=== PATIENT | male | born 2000 | race Caucasian/White ===

== ENCOUNTER 2018-05-30 11:13 | Outpatient (CLI) | payer OTHER | END 2018-05-30 11:14 | disposition home or self-care (01) | LOC: LAB.F 11:13 | PROVIDERS: ATTEND Internal Medicine | DX: Z02.9 Encounter for administrative examinations, unspecified (principal) | CPT/HCPCS: 36415; 81599; 86317; 86735; 86762; 86765; 86774; 86787; 87801 ==

== ENCOUNTER 2019-05-01 13:56 | Outpatient (CLI) | payer BC | END 2019-05-01 13:57 | disposition home or self-care (01) | LOC: LAB.S 13:56 | PROVIDERS: ATTEND Internal Medicine | DX: Z02.9 Encounter for administrative examinations, unspecified (principal) | CPT/HCPCS: 36415; 81599; 86480 ==

== ENCOUNTER 2019-12-11 08:00 | Outpatient (CLI) | payer BC | END 2019-12-11 23:59 | disposition home or self-care (01) | LOC: LAB.R 08:00 | PROVIDERS: ATTEND Physician Assistant Medical | DX: R05 Cough (principal); B97.89 Other viral agents as the cause of diseases classified elsewhere; Z20.828 Contact with and (suspected) exposure to other viral communicable diseases | CPT/HCPCS: 81599; 87275; 87276 ==

== ENCOUNTER 2019-12-11 11:38 | Outpatient (CLI) | payer BC ==
--- NOTE | 2019-12-11 11:40 | XRAY Report ---
PROCEDURE: Chest 2 View X-Ray INDICATIONS: COUGH POSSIBLE COVID19 TECHNIQUE: 2 view(s) of the chest. COMPARISON: None. FINDINGS: Surgical changes and devices: None. Lungs and pleura: No pleural effusions or pneumothorax. Lungs are clear. Mediastinum: Mediastinal contours are normal. Heart size is normal. Bones and chest wall: No suspicious bony abnormalities. Soft tissues appear unremarkable. IMPRESSION: No acute cardiopulmonary pathology. Reviewed by: Ignacio Reyes MD on 12/11/2019 11:38 AM PDT Approved by: Ignacio Reyes MD on 12/11/2019 11:38 AM PDT Station ID: [id number]
== END 2019-12-11 11:39 | disposition home or self-care (01) ==
LOC: DI.S 11:38
PROVIDERS: ATTEND Physician Assistant Medical
DX: R05 Cough (principal); R69 Illness, unspecified; B97.89 Other viral agents as the cause of diseases classified elsewhere; Z20.828 Contact with and (suspected) exposure to other viral communicable diseases
CPT/HCPCS: 71046; 81599; 87275; 87276

== ENCOUNTER 2020-12-02 12:46 | Outpatient (CLI) | payer OTHER, BC ==
--- NOTE | 2020-12-02 13:22 | XRAY Report ---
PROCEDURE: Finger(s) LT INDICATIONS: LACERATION 2ND AND 3RD DIGIT LEFT HAND TECHNIQUE: AP hand, 3 views of the second and third finger(s) acquired. COMPARISON: None FINDINGS: Bones: Acute fracture involving lateral aspect of second distal phalangeal tuft is seen with laterall y displaced fractured fragment. No acute fracture is seen in the third digit. No suspicious bony lesi ons. Soft tissues: No other suspicious soft tissue calcifications. No radiopaque foreign body is seen. IMPRESSION: Displaced fracture involving radial aspect of second distal phalangeal tuft. No acute third digit fra cture or dislocation. No radiopaque foreign body. Reviewed by: Ignacio Reyes MD on 12/02/2020 1:20 PM PDT Approved by: Ignacio Reyes MD on 12/02/2020 1:20 PM PDT Station ID: [id number]
== END 2020-12-02 12:47 | disposition home or self-care (01) ==
LOC: DI.S 12:46
PROVIDERS: ATTEND Emergency Medicine
DX: S61.211A Laceration without foreign body of left index finger without damage to nail, initial encounter (principal); S62.631A Displaced fracture of distal phalanx of left index finger, initial encounter for closed fracture